=== PATIENT | male | born 1990 | race Caucasian/White ===

== ENCOUNTER 2018-03-11 11:25 | Emergency (ER) | payer BC ==
[2018-03-11 11:37] VITALS: BP 146/79
--- NOTE | 2018-03-11 12:29 | ED Physician Documentation ---
PD HPI SKIN - Stated complaint Stated Complaint: FACIAL SWELLING - Chief complaint Chief Complaint: Allergic Rx - History obtained from History obtained from: Patient - History of Present Illness Timing - onset: Other (He was camping in [place] about 3 days ago and was exposed to poison carlos and they were also burning it so it got on his face. The affected areas included the left side of face, left arm, and right anterior abdominal wall. He has tried hydrocortisone without much relief.) Review of Systems Constitutional: reports: Reviewed and negative Eyes: denies: Loss of vision, Decreased vision, Photophobia, Discharge, Irritation Ears: denies: Loss of hearing, Ear pain Nose: denies: Rhinorrhea / runny nose, Congestion PD PAST MEDICAL HISTORY - Past Medical History Past Medical History: No - Present Medications Home Medications: Ambulatory Orders Medication Instructions Recorded Confirmed Dextroamphetamine/Amphetamine 10 mg PO PRN PRN 03/11/18 03/11/18 [Adderall 10 mg Tablet] Methylphenidate HCl 60 mg PO 03/11/18 [Methylphenidate HCl ER] Triamcinolone 0.1% Oint [Kenalog 1 gm TOP BID #2 tube 03/11/18 0.1% Oint] predniSONE [Prednisone] 60 mg PO DAILY 5 Days #15 tablet 03/11/18 - Allergies Allergies/Adverse Reactions: Allergies Allergy/AdvReac Type Severity Reaction Status Date / Time No Known Drug Allergies Allergy Verified 03/11/18 11:30 - Social History Does the pt smoke?: No Smoking Status: Never smoker - Immunizations Immunizations are current?: Yes PD ED PE NORMAL - Vitals Vital signs reviewed: Yes - General General: Alert and oriented X 3, No acute distress - HEENT HEENT: Other (Conjunctiva are normal, but he does have diffuse redness and swelling of the left side of the face which is mild. ) - Derm Derm: Other (He has clear contact dermatitis to the posterior left hand and anterior left forearm as well as the anterior right abdominal wall.) - Neuro Neuro: Alert and oriented X 3, Normal speech Results - Vitals Vitals: Vital Signs - 24 hr 03/11/18 11:27 Temperature 36.8 C Heart Rate 83 Respiratory 16 Rate Blood Pressure 146/79 H O2 Saturation 99 Oxygen O2 Source Room air PD MEDICAL DECISION MAKING - Sepsis Event Vital Signs: Vital Signs - 24 hr 03/11/18 11:27 Temperature 36.8 C Heart Rate 83 Respiratory 16 Rate Blood Pressure 146/79 H O2 Saturation 99 Oxygen O2 Source Room air Departure - Departure Disposition: 01 Home, Self Care Clinical Impression: Contact dermatitis Qualifiers: Contact dermatitis type: irritant Contact dermatitis trigger: non-food plants Qualified Code(s): L24.7 - Irritant contact dermatitis due to plants, except food Condition: Good Record reviewed to determine appropriate education?: Yes Instructions: ED Dermatitis Contact Prescriptions: predniSONE [Prednisone] 60 mg PO DAILY 5 Days #15 tablet Triamcinolone 0.1% Oint [Kenalog 0.1% Oint] 1 gm TOP BID #2 tube Comments: You can continue the hydrocortisone on your face, do not use the prescription ointment on your face. But you can use that on your arm and abdominal wall. Continue Benadryl as needed for itching or sleep. Your blood pressure was elevated today on check into the emergency department. This does not mean that you have hypertension, it is a common phenomenon to come to the emergency department and have elevated blood pressure. I recommend that you see your primary care physician within the week to have it rechecked when you are feeling better.
== END 2018-03-11 12:44 | disposition home or self-care (01) ==
LOC: ED 11:25
DX: L24.7 Irritant contact dermatitis due to plants, except food (principal); R03.0 Elevated blood-pressure reading, without diagnosis of hypertension
CPT/HCPCS: 99283